=== PATIENT | male | born 1940 | race Hispanic/Latino ===

== ENCOUNTER → 2017-03-27 | Outpatient (CLI) | payer MEDICARE | END | disposition home or self-care (01) | LOC: RAH 12:09 | PROVIDERS: ATTEND Internal Medicine | DX: N28.1 Cyst of kidney, acquired (principal) | CPT/HCPCS: 76770 ==

== ENCOUNTER 2017-04-08 09:45 | Emergency (ER) | payer MEDICARE ==
[2017-04-08 10:38] LABS: BASOPHILS % (AUTO) 0.9 % (0.0-5.0); EOSINOPHILS % (AUTO) 2.4 % (0.0-8.0); HEMATOCRIT 38.5 % (42-54); LYMPHOCYTES % (AUTO) 10.6 % (21.0-51.0); MEAN CORPUSCULAR HEMOGLOBIN 29.8 pg (27.0-33.0); MEAN CORPUSCULAR HGB CONC 33.7 g/dL (32.0-36.0); MEAN CORPUSCULAR VOLUME 88.5 fL (79-99); MONOCYTES % (AUTO) 7.6 % (3.0-13.0); NEUTROPHILS % (AUTO) 78.5 % (40.0-77.0); PLATELET COUNT (AUTO) 295 K/uL (130-400); RED BLOOD CELL COUNT(AUTO) 4.35 MIL/uL (4.50-6.20); WHITE BLOOD COUNT (AUTO) 7.1 K/uL (4.8-10.8)
[2017-04-08 10:52] LABS: CREATININE 0.8 mg/dL (0.5-1.5); POTASSIUM 4.3 mmol/L (3.5-5.1)
[2017-04-08 11:06] LABS: ALBUMIN 3.6 g/dL (3.5-5.0); BILIRUBIN,TOTAL 0.5 mg/dL (0.2-1.0); CREATINE KINASE MB 5.4 ng/mL (0.5-3.6)
[2017-04-08] MEDS ORDERED: AZITHROMYCIN 250 MG TABLET PO ONE (13:28)
== END 2017-04-08 13:44 | disposition home or self-care (01) ==
LOC: EDH 09:45
DX: J06.9 Acute upper respiratory infection, unspecified (principal); I10 Essential (primary) hypertension; E78.5 Hyperlipidemia, unspecified; Z79.899 Other long term (current) drug therapy; Z98.890 Other specified postprocedural states; Z87.891 Personal history of nicotine dependence
CPT/HCPCS: 36415; 71045; 80053; 82550; 82553; 84484; 85025; 87804; 93005

== ENCOUNTER 2017-06-17 18:51 | Emergency (ER) | payer MEDICARE ==
[2017-06-17] MEDS ORDERED: OCTYL 2-CYANOACRYLATE 1 EACH TP ONE (19:10)
== END 2017-06-17 19:47 | disposition home or self-care (01) ==
LOC: EDH 18:51
DX: S61.412A Laceration without foreign body of left hand, initial encounter (principal); E78.5 Hyperlipidemia, unspecified; I10 Essential (primary) hypertension; W18.39XA Other fall on same level, initial encounter; Y93.89 Activity, other specified; Y92.098 Other place in other non-institutional residence as the place of occurrence of the external cause; Y99.8 Other external cause status

== ENCOUNTER 2018-07-30 14:12 | Emergency (ER) | payer MEDICARE ==
[2018-07-30 15:10] LABS: BASOPHILS % (AUTO) 0.7 % (0.0-5.0); EOSINOPHILS % (AUTO) 0.7 % (0.0-8.0); HEMATOCRIT 36.9 % (42-54); LYMPHOCYTES % (AUTO) 4.8 % (21.0-51.0); MEAN CORPUSCULAR HEMOGLOBIN 29.8 pg (27.0-33.0); MEAN CORPUSCULAR HGB CONC 33.5 g/dL (32.0-36.0); MEAN CORPUSCULAR VOLUME 89.1 fL (79-99); MONOCYTES % (AUTO) 16.3 % (3.0-13.0); NEUTROPHILS % (AUTO) 77.5 % (40.0-77.0); PLATELET COUNT (AUTO) 226 K/uL (130-400); RED BLOOD CELL COUNT(AUTO) 4.14 MIL/uL (4.50-6.20); RED CELL DISTRIBUTION WIDTH 13.8 % (11.0-15.5)
[2018-07-30 15:17] LABS: CREATININE 0.9 mg/dL (0.5-1.5)
[2018-07-30 15:22] LABS: ALBUMIN 3.8 g/dL (3.5-5.0); BILIRUBIN,DIRECT 0.1 mg/dL (0.0-0.3); BILIRUBIN,TOTAL 0.4 mg/dL (0.2-1.0); TOTAL PROTEIN, SERUM 6.7 g/dL (6.0-8.3)
[2018-07-30] MEDS ORDERED: ACETAMINOPHEN EXTRA STRENGTH 500 MG TABLET ONE (15:39)
[2018-07-30] MEDS ORDERED: OSELTAMIVIR PHOSPHATE 75 MG CAP ONE (16:00)
== END 2018-07-30 16:58 | disposition home or self-care (01) ==
LOC: EDH 14:12
DX: J09.X2 Influenza due to identified novel influenza A virus with other respiratory manifestations (principal); I10 Essential (primary) hypertension; E78.5 Hyperlipidemia, unspecified; Z87.891 Personal history of nicotine dependence
CPT/HCPCS: 36415; 71046; 80048; 80076; 82550; 83605; 84484; 85025; 87040; 87804; 93005

== ENCOUNTER 2018-09-12 20:40 | Observation (INO) | payer MEDICARE ==
[~2018-09-12] VITALS: Ht 165.1 cm; Wt 64.0 kg
[2018-09-12 21:20] LABS: APPEARANCE,URINE Clear (CLEAR); BILIRUBIN,URINE Small (NEGATIVE); COLOR,URINE Dark Yellow (YELLOW); GLUCOSE, URINE (UA) Negative (NEGATIVE); KETONES,URINE 15 mg/dL (NEGATIVE); LEUKOCYTE ESTERASE ,URINE Negative (NEGATIVE); NITRATE,URINE Negative (NEGATIVE); OCCULT BLOOD,URINE Negative (NEGATIVE); PROTEIN,URINE Trace mg/dL (NEGATIVE)
[2018-09-12] MEDS ORDERED: SODIUM CHLORIDE 0.9% 1000ML 1,000 ML IV ONE (21:29)
[2018-09-12 21:38] LABS: BACTERIA,URINE Few /HPF (None Seen); CALCIUM OXALATE CRYSTALS,UR Few /LPF (None Seen); MUCUS,URINE Few LPF (None Seen); RBC,URINE None Seen /HPF (0-1); SQUAMOUS EPITHELIAL CELL,UR None Seen /HPF (0-2); WBC,URINE 0-1 /HPF (0-1)
[2018-09-12 21:50] LABS: BASOPHILS % (AUTO) 0.6 % (0.0-5.0); EOSINOPHILS % (AUTO) 0.4 % (0.0-8.0); HEMATOCRIT 38.6 % (42-54); LYMPHOCYTES % (AUTO) 5.3 % (21.0-51.0); MEAN CORPUSCULAR HEMOGLOBIN 30.3 pg (27.0-33.0); MEAN CORPUSCULAR HGB CONC 33.7 g/dL (32.0-36.0); MEAN CORPUSCULAR VOLUME 89.8 fL (79-99); MONOCYTES % (AUTO) 15.2 % (3.0-13.0); NEUTROPHILS % (AUTO) 78.5 % (40.0-77.0); PLATELET COUNT (AUTO) 251 K/uL (130-400); RED CELL DISTRIBUTION WIDTH 13.9 % (11.0-15.5); WHITE BLOOD COUNT (AUTO) 4.1 K/uL (4.8-10.8)
[2018-09-12 22:01] LABS: CREATININE 0.9 mg/dL (0.5-1.5); POTASSIUM 3.6 mmol/L (3.5-5.1)
[2018-09-12 22:05] LABS: ALBUMIN 3.8 g/dL (3.5-5.0); BILIRUBIN,TOTAL 0.6 mg/dL (0.2-1.0); TOTAL PROTEIN, SERUM 6.9 g/dL (6.0-8.3)
[2018-09-12 22:16] LABS: BAND NEUTROPHILS % (MANUAL) 27 % (0-2); LYMPHOCYTES % (MANUAL) 9 % (22-44); METAMYELOCYTES % 1 % (0-0); MONOCYTES % (MANUAL) 11 % (2-9); SEGMENTED NEUTROPHILS % 52 % (40-70)
[2018-09-12 22:17] LABS: MAN.DIFF COMMENT-IMPRESSION MANUAL DIFFERENTIAL
[2018-09-12] MEDS ORDERED: LOPERAMIDE HCL 2 MG CAP PO PRN (23:45)
[2018-09-12] MEDS ORDERED: ACETAMINOPHEN 325 MG TAB PO PRN (23:45)
[2018-09-12] MEDS: 1/2 NORMAL SALINE 1,000 ML IV SCH (23:45)
[2018-09-12] MEDS ORDERED: ONDANSETRON HCL 4 MG/2 ML VIAL IVP PRN (23:45)
[2018-09-13] MEDS ORDERED: 1/2 NORMAL SALINE 1,000 ML IV ONE (01:20)
--- NOTE | 2018-09-13 01:30 | NUR ---
Received report from ER Nurse Callum helm,is admitted for dehydration due to diarrhea,stool specimen was collected in ER and was sent to lab and result is negative for Cdiff and negative for occult blood.
--- NOTE | 2018-09-13 01:50 | NUR ---
Received pt from ER via stretcher accompanied by ,alert and coherent.Pt. denies pain or any discomfort on 03/20 NS @125ml/hr infusing well to right AC.
[2018-09-13 01:55] VITALS: BP 133/68
[2018-09-13] MEDS ORDERED: PRAV10TA39 PO (02:07)
[2018-09-13] MEDS ORDERED: AMLO5TAB9 PO (02:07)
[2018-09-13 04:00] VITALS: BP 115/59
[2018-09-13 05:22] LABS: HEMATOCRIT 35.9 % (42-54); MEAN CORPUSCULAR HEMOGLOBIN 30.8 pg (27.0-33.0); MEAN CORPUSCULAR VOLUME 90.5 fL (79-99); PLATELET COUNT (AUTO) 213 K/uL (130-400); RED BLOOD CELL COUNT(AUTO) 3.97 MIL/uL (4.50-6.20); RED CELL DISTRIBUTION WIDTH 14.2 % (11.0-15.5); WHITE BLOOD COUNT (AUTO) 2.4 K/uL (4.8-10.8)
[2018-09-13 05:42] LABS: CREATININE 0.8 mg/dL (0.5-1.5); POTASSIUM 4.2 mmol/L (3.5-5.1)
--- NOTE | 2018-09-13 05:43 | NUR ---
Received call from lab staff Haritha, needs stool specimen to be collected because specimen sent from ER was not enough.
--- NOTE | 2018-09-13 06:55 | NUR ---
Dr. Blanton here and saw the pt. he ordered to advance diet as tolerated and if pt. tolerates cand discharge pt in the afternoon today.I also notified him that pt. fell at home last and sustained abrasion to right great toe ,dimesize.No new further order received.
[2018-09-13 08:21] VITALS: BP 107/59
[2018-09-13] MEDS ORDERED: PANTOPRAZOLE SODIUM 40 MG TABLET.DR PO SCH (09:00)
[2018-09-13] MEDS: 1/2 NORMAL SALINE 1,000 ML IV SCH (09:12)
[2018-09-13 12:10] VITALS: BP 110/56
--- NOTE | 2018-09-13 15:28 | NUR ---
DISCHARGE INSTRUCTIONS GIVEN. ALL QUESTIONS ANSWERED. IV DISCONTINUED WITH INNER CANNULA INTACT. INSTRUCTED TO FOLLOW UP WITH PRIMARY CARE PHYSCIAN .
== END 2018-09-13 15:16 | disposition home or self-care (01) ==
LOC: EDH 20:40 → EDHIP 23:15 → 3AH 09-13 00:50
PROVIDERS: ADMIT Internal Medicine; ATTEND Internal Medicine
DX: K52.9 Noninfective gastroenteritis and colitis, unspecified (principal); E86.0 Dehydration; I10 Essential (primary) hypertension; E78.5 Hyperlipidemia, unspecified; Z79.899 Other long term (current) drug therapy
CPT/HCPCS: 36415 ×2; 80048; 80053; 81001; 82270; 83605; 83690; 85025; 85027; 87040 ×2; 87324; 87804 ×2; 93005; 96360; 96361; 99284; G0378 ×16; J7030

== ENCOUNTER 2018-09-14 18:31 | Emergency (ER) | payer MEDICARE ==
[~2018-09-14 18:31] MED LIST: AMLO5TAB9 PO; PRAV10TA39 PO
[2018-09-14] MEDS ORDERED: SODIUM CHLORIDE 0.9% 500ML 500 ML IV ONE (18:51)
[2018-09-14 19:11] LABS: BASOPHILS % (AUTO) 0.7 % (0.0-5.0); EOSINOPHILS % (AUTO) 2.1 % (0.0-8.0); HEMATOCRIT 36.2 % (42-54); LYMPHOCYTES % (AUTO) 15.1 % (21.0-51.0); MEAN CORPUSCULAR HEMOGLOBIN 30.4 pg (27.0-33.0); MEAN CORPUSCULAR VOLUME 89.4 fL (79-99); NEUTROPHILS % (AUTO) 59.1 % (40.0-77.0); PLATELET COUNT (AUTO) 248 K/uL (130-400); RED BLOOD CELL COUNT(AUTO) 4.05 MIL/uL (4.50-6.20); RED CELL DISTRIBUTION WIDTH 14.5 % (11.0-15.5); WHITE BLOOD COUNT (AUTO) 4.2 K/uL (4.8-10.8)
[2018-09-14 19:42] LABS: CREATININE 0.9 mg/dL (0.5-1.5); POTASSIUM 3.5 mmol/L (3.5-5.1)
[2018-09-14 19:46] LABS: ALBUMIN 3.4 g/dL (3.5-5.0); BILIRUBIN,TOTAL 0.6 mg/dL (0.2-1.0); TOTAL PROTEIN, SERUM 6.7 g/dL (6.0-8.3)
[2018-09-14] MEDS ORDERED: HYOSCYAMINE SULFATE 0.125 MG TAB.SUBL SL ONE (19:59)
[2018-09-14] MEDS ORDERED: FAMOTIDINE/PF 20 MG/2 ML VIAL IV ONE (20:00)
== END 2018-09-14 23:08 | disposition home or self-care (01) ==
LOC: EDH 18:31
DX: A09 Infectious gastroenteritis and colitis, unspecified (principal); I10 Essential (primary) hypertension; E78.5 Hyperlipidemia, unspecified; Z98.890 Other specified postprocedural states
CPT/HCPCS: 36415; 74176; 80053; 83690; 85025; 96361; 96365; 99285; J3490; J7040

== ENCOUNTER 2022-03-21 12:53 | Emergency (ER) | payer OTHER, MEDICARE ==
[~2022-03-21] VITALS: Ht 172.7 cm; Wt 61.2 kg
[~2022-03-21 12:53] MED LIST changes: +AMLO-257 PO; -AMLO5TAB9 PO
[2022-03-21 14:22] LABS: BASOPHILS % (AUTO) 0.8 % (0.0-5.0); EOSINOPHILS % (AUTO) 1.8 % (0.0-8.0); HEMATOCRIT 37.4 % (42-54); MEAN CORPUSCULAR HEMOGLOBIN 29.5 pg (27.0-33.0); MEAN CORPUSCULAR HGB CONC 33.2 g/dL (32.0-36.0); MEAN CORPUSCULAR VOLUME 88.8 fL (79-99); MONOCYTES % (AUTO) 8.5 % (3.0-13.0); NEUTROPHILS % (AUTO) 78.6 % (40.0-77.0); PLATELET COUNT (AUTO) 238 K/uL (130-400); RED BLOOD CELL COUNT(AUTO) 4.21 MIL/uL (4.50-6.20); RED CELL DISTRIBUTION WIDTH 13.2 % (11.0-15.5); WHITE BLOOD COUNT (AUTO) 7.9 K/uL (4.8-10.8)
[2022-03-21 14:50] LABS: CREATININE 0.8 mg/dL (0.5-1.5); POTASSIUM 4.2 mmol/L (3.5-5.1)
[2022-03-21 14:54] LABS: ALBUMIN 3.7 g/dL (3.5-5.0); TOTAL PROTEIN, SERUM 6.8 g/dL (6.0-8.3)
[2022-03-21 16:05] VITALS: BP 116/67
== END 2022-03-21 16:00 | disposition left against medical advice (07) ==
LOC: EDH 12:53
DX: I95.2 Hypotension due to drugs (principal); F03.90 Unspecified dementia, unspecified severity, without behavioral disturbance, psychotic disturbance, mood disturbance, and anxiety; E11.9 Type 2 diabetes mellitus without complications; E78.00 Pure hypercholesterolemia, unspecified; I10 Essential (primary) hypertension; F20.9 Schizophrenia, unspecified; Z98.890 Other specified postprocedural states
CPT/HCPCS: 36415; 80053; 85025

== ENCOUNTER 2022-07-14 21:40 | Emergency (ER) | payer OTHER, MEDICARE ==
[~2022-07-14] VITALS: Ht 170.2 cm; Wt 63.5 kg
[2022-07-14] MEDS ORDERED: ACETAMINOPHEN 120 MG SUPPOSITORY RC ONE (22:22)
[2022-07-14] MEDS ORDERED: ACETAMINOPHEN 650 MG SUPPOSITORY RC ONE (22:24)
[2022-07-14] MEDS ORDERED: ACETAMINOPHEN 500 MG TABLET PO ONE (22:30)
[2022-07-14 22:40] LABS: BASOPHILS % (AUTO) 0.3 % (0.0-5.0); EOSINOPHILS % (AUTO) 0.4 % (0.0-8.0); LYMPHOCYTES % (AUTO) 5.2 % (21.0-51.0); MEAN CORPUSCULAR HEMOGLOBIN 29.9 pg (27.0-33.0); MEAN CORPUSCULAR HGB CONC 33.2 g/dL (32.0-36.0); MEAN CORPUSCULAR VOLUME 89.8 fL (79-99); MONOCYTES % (AUTO) 9.7 % (3.0-13.0); PLATELET COUNT (AUTO) 217 K/uL (130-400); RED BLOOD CELL COUNT(AUTO) 4.12 MIL/uL (4.50-6.20); RED CELL DISTRIBUTION WIDTH 13.5 % (11.0-15.5); WHITE BLOOD COUNT (AUTO) 6.9 K/uL (4.8-10.8)
[2022-07-14 22:54] LABS: APPEARANCE,URINE CLEAR (CLEAR); BILIRUBIN,URINE NEGATIVE (NEGATIVE); COLOR,URINE YELLOW (YELLOW); GLUCOSE, URINE (UA) NEGATIVE (NEGATIVE); KETONES,URINE NEGATIVE (NEGATIVE); LEUKOCYTE ESTERASE ,URINE NEGATIVE Leu/uL (NEGATIVE); NITRATE,URINE NEGATIVE (NEGATIVE); OCCULT BLOOD,URINE NEGATIVE (NEGATIVE); PH,URINE 6.5 (5.0-8.0); PROTEIN,URINE NEGATIVE (NEGATIVE); UROBILINOGEN,URINE 0.2 mg/dL (0.2-1.0)
[2022-07-14 23:00] LABS: CREATININE 0.9 mg/dL (0.5-1.5); POTASSIUM 3.8 mmol/L (3.5-5.1)
[2022-07-14 23:08] LABS: ALBUMIN 3.6 g/dL (3.5-5.0); TOTAL PROTEIN, SERUM 6.6 g/dL (6.0-8.3)
[2022-07-15 01:38] VITALS: BP 122/75
== END 2022-07-15 03:15 | disposition home or self-care (01) ==
LOC: EDH 21:40
DX: F03.90 Unspecified dementia, unspecified severity, without behavioral disturbance, psychotic disturbance, mood disturbance, and anxiety (principal); F20.9 Schizophrenia, unspecified; E11.9 Type 2 diabetes mellitus without complications; E78.00 Pure hypercholesterolemia, unspecified; I10 Essential (primary) hypertension; Z20.822 Contact with and (suspected) exposure to COVID-19
CPT/HCPCS: 99285; 70450; 71045; 87635; 84484; 80053; 85025; 87040 ×2; 87077 ×2; 87186 ×2; 87804 ×2; 83605; 81003; 36415; 93005; C9803

== ENCOUNTER 2023-01-16 15:29 | Emergency (ER) | payer OTHER, MEDICARE ==
[~2023-01-16] VITALS: Ht 175.3 cm; Wt 67.1 kg
[~2023-01-16 15:29] MED LIST changes: +OLAN2.5T29 PO
[2023-01-16 15:36] VITALS: BP 106/55; PULSE 62; RESP 16; O2SAT 100
[2023-01-16 16:37] LABS: BASOPHILS # (AUTO) 0.08 K/uL (0.00-0.20); BASOPHILS % (AUTO) 1.4 % (0.0-5.0); EOSINOPHILS # (AUTO) 0.31 K/uL (0.00-0.70); EOSINOPHILS % (AUTO) 5.5 % (0.0-8.0); HEMATOCRIT 34.8 % (42-54); IMMATURE GRANULOCYTE ABSOLUTE 0.01 K/uL (0-1); MEAN CORPUSCULAR HEMOGLOBIN 29.9 pg (27.0-33.0); MEAN CORPUSCULAR HGB CONC 32.8 g/dL (32.0-36.0); MEAN CORPUSCULAR VOLUME 91.3 fL (79-99); MONOCYTES # (AUTO) 0.5 K/uL (0.1-1.0); MONOCYTES % (AUTO) 8.1 % (3.0-13.0); NEUTROPHILS # (AUTO) 3.8 K/uL (1.8-7.7); NEUTROPHILS % (AUTO) 67.8 % (40.0-77.0); PLATELET COUNT (AUTO) 277 K/uL (130-400); RED BLOOD CELL COUNT(AUTO) 3.81 MIL/uL (4.50-6.20); RED CELL DISTRIBUTION WIDTH 14.6 % (11.0-15.5); WHITE BLOOD COUNT (AUTO) 5.7 K/uL (4.8-10.8)
[2023-01-16 16:46] LABS: CREATININE 0.7 mg/dL (0.5-1.5); POTASSIUM 3.9 mmol/L (3.5-5.1)
[2023-01-16 16:51] LABS: ALBUMIN 3.1 g/dL (3.5-5.0); BILIRUBIN,TOTAL 0.3 mg/dL (0.2-1.0); TOTAL PROTEIN, SERUM 6.2 g/dL (6.0-8.3)
[2023-01-16 17:41] LABS: ADD UA MICROSCOPIC YES; APPEARANCE,URINE CLOUDY (CLEAR); BILIRUBIN,URINE NEGATIVE (NEGATIVE); COLOR,URINE YELLOW (YELLOW); GLUCOSE, URINE (UA) NEGATIVE (NEGATIVE); KETONES,URINE NEGATIVE (NEGATIVE); LEUKOCYTE ESTERASE ,URINE 500 Leu/uL (NEGATIVE); NITRATE,URINE 2+ (NEGATIVE); OCCULT BLOOD,URINE NEGATIVE (NEGATIVE); PROTEIN,URINE 20 mg/dL (NEGATIVE); UROBILINOGEN,URINE 0.2 mg/dL (0.2-1.0)
[2023-01-16 17:44] LABS: BACTERIA,URINE FEW /HPF (None Seen); MUCUS,URINE FEW LPF (None Seen); OTHER CASTS, URINE 3 /LPF (None Seen); UNCLASSIFIED CRYSTAL 4 /HPF (None Seen); WBC CLUMP FEW /HPF (0-1); WBC,URINE >100 /HPF (0-1)
[2023-01-16] MEDS ORDERED: CEFTRIAXONE 1G VIAL ONE (17:51)
[2023-01-16] MEDS ORDERED: CEFTRIAXONE 1G VIAL IV ONE (18:00)
[2023-01-16] MEDS ORDERED: TETANUS/DIPHTHERIA TOXOID [ADULT] 0.5 ML VIAL IM ONE (18:30)
[2023-01-16] MEDS ORDERED: CEPH500B PO (18:32)
== END 2023-01-16 19:08 | disposition home or self-care (01) ==
LOC: EDH 15:29
DX: S00.83XA Contusion of other part of head, initial encounter (principal); E11.9 Type 2 diabetes mellitus without complications; E78.00 Pure hypercholesterolemia, unspecified; F03.90 Unspecified dementia, unspecified severity, without behavioral disturbance, psychotic disturbance, mood disturbance, and anxiety; F20.9 Schizophrenia, unspecified; I10 Essential (primary) hypertension; W18.39XA Other fall on same level, initial encounter; Y93.89 Activity, other specified; Y92.89 Other specified places as the place of occurrence of the external cause; Y99.8 Other external cause status
CPT/HCPCS: 99285; 70450; 96374; 80053; 85025; 87077; 87088; 87186; 81001; 36415; 90714; 72125; 90471; J0696

== ENCOUNTER 2023-02-24 14:59 | Emergency (ER) | payer OTHER, MEDICARE ==
[~2023-02-24] VITALS: Ht 175.3 cm; Wt 63.5 kg
[~2023-02-24 14:59] MED LIST changes: +CEPH500B PO
[2023-02-24] MEDS ORDERED: RIVA3CAP17 PO (15:23)
[2023-02-24] MEDS ORDERED: BACL10TA PO (15:25)
[2023-02-24] MEDS ORDERED: HALOPERIDOL INJ 5 MG/ML VIAL ONE (19:54)
[2023-02-24] MEDS ORDERED: HALOPERIDOL INJ 5 MG/ML VIAL IV STA (20:07)
[2023-02-24 20:08] LABS: HEMATOCRIT 38.5 % (42-54); MEAN CORPUSCULAR HEMOGLOBIN 30.3 pg (27.0-33.0); MEAN CORPUSCULAR VOLUME 91.9 fL (79-99); RED BLOOD CELL COUNT(AUTO) 4.19 MIL/uL (4.50-6.20); RED CELL DISTRIBUTION WIDTH 14.5 % (11.0-15.5); WHITE BLOOD COUNT (AUTO) 8.8 K/uL (4.8-10.8)
[2023-02-24 20:21] LABS: CREATININE 0.7 mg/dL (0.5-1.5); POTASSIUM 4.1 mmol/L (3.5-5.1)
[2023-02-24 20:30] LABS: APPEARANCE,URINE CLEAR (CLEAR); BILIRUBIN,URINE NEGATIVE (NEGATIVE); GLUCOSE, URINE (UA) NEGATIVE (NEGATIVE); KETONES,URINE NEGATIVE (NEGATIVE); LEUKOCYTE ESTERASE ,URINE MODERATE Leu/uL (NEGATIVE); NITRATE,URINE POSITIVE (NEGATIVE); OCCULT BLOOD,URINE SMALL (NEGATIVE); PROTEIN,URINE NEGATIVE (NEGATIVE); UROBILINOGEN,URINE 0.2 mg/dL (0.2-1.0)
[2023-02-24 20:32] LABS: ALBUMIN 3.7 g/dL (3.5-5.0); BILIRUBIN,TOTAL 0.3 mg/dL (0.2-1.0)
[2023-02-24 20:35] LABS: ADD UA MICROSCOPIC YES; COLOR,URINE COLORLESS (YELLOW)
[2023-02-24 20:37] LABS: BACTERIA,URINE MOD /HPF (None Seen); MUCUS,URINE RARE LPF (None Seen); WBC,URINE 51-100 /HPF (0-1)
[2023-02-24] MEDS ORDERED: OCTYL 2-CYANOACRYLATE 1 EACH TP SCH (21:00)
[2023-02-24] MEDS ORDERED: CEFTRIAXONE 1G VIAL IVPB ONE (21:00)
[2023-02-24] MEDS ORDERED: CEFD300C3 PO (21:59)
[2023-02-24 22:45] VITALS: BP 132/74; PULSE 88; RESP 18; O2SAT 99
== END 2023-02-24 23:06 | disposition home or self-care (01) ==
LOC: EDH 14:59
DX: S01.81XA Laceration without foreign body of other part of head, initial encounter (principal); N39.0 Urinary tract infection, site not specified; I10 Essential (primary) hypertension; E78.00 Pure hypercholesterolemia, unspecified; F03.90 Unspecified dementia, unspecified severity, without behavioral disturbance, psychotic disturbance, mood disturbance, and anxiety; W01.198A Fall on same level from slipping, tripping and stumbling with subsequent striking against other object, initial encounter; Y93.89 Activity, other specified; Y92.89 Other specified places as the place of occurrence of the external cause; Y99.8 Other external cause status
CPT/HCPCS: 99285; 96365; 70450; 96375; 82550; 83735; 84484; 80053; 85027; 87077; 87088; 87186; 81001; 36415; 12011; 93005; J1630; J0696

== ENCOUNTER 2023-08-11 19:56 | Emergency (ER) | payer OTHER, MEDICARE ==
[~2023-08-11] VITALS: Ht 167.6 cm; Wt 68.0 kg
[~2023-08-11 19:56] MED LIST changes: +BACL10TA PO; +CEFD300C3 PO; -CEPH500B PO; +RIVA3CAP17 PO
[2023-08-11 20:52] LABS: BASOPHILS # (AUTO) 0.02 K/uL (0.00-0.20); BASOPHILS % (AUTO) 0.2 % (0.0-5.0); EOSINOPHILS # (AUTO) 0.01 K/uL (0.00-0.70); EOSINOPHILS % (AUTO) 0.1 % (0.0-8.0); HEMATOCRIT 37.1 % (42-54); IMMATURE GRANULOCYTE ABSOLUTE 0.03 K/uL (0-1); LYMPHOCYTES # (AUTO) 0.4 K/uL (1.0-4.8); LYMPHOCYTES % (AUTO) 4.9 % (21.0-51.0); MEAN CORPUSCULAR HEMOGLOBIN 29.9 pg (27.0-33.0); MEAN CORPUSCULAR HGB CONC 33.2 g/dL (32.0-36.0); MONOCYTES # (AUTO) 0.6 K/uL (0.1-1.0); MONOCYTES % (AUTO) 6.9 % (3.0-13.0); NEUTROPHILS # (AUTO) 7.8 K/uL (1.8-7.7); NEUTROPHILS % (AUTO) 87.6 % (40.0-77.0); PLATELET COUNT (AUTO) 230 K/uL (130-400); RED BLOOD CELL COUNT(AUTO) 4.12 MIL/uL (4.50-6.20); RED CELL DISTRIBUTION WIDTH 14.2 % (11.0-15.5)
[2023-08-11 21:09] LABS: CREATININE 1.1 mg/dL (0.5-1.3)
[2023-08-11] MEDS ORDERED: IOHEXOL-350 75 ML VIAL IV ONE (21:11)
[2023-08-11] MEDS: ONDANSETRON 4MG INJ IVP STA (21:12)
[2023-08-11] MEDS: 0.9%NACL 1000ML 1,000 ML IV STA (21:12)
[2023-08-11 21:20] LABS: ALBUMIN 3.9 g/dL (3.5-5.0); BILIRUBIN,TOTAL 0.9 mg/dL (0.2-1.0); MAGNESIUM 2.1 mg/dL (1.80-2.40); TOTAL PROTEIN, SERUM 7.1 g/dL (6.0-8.3)
[2023-08-11 22:28] LABS: APPEARANCE,URINE CLEAR (CLEAR); BILIRUBIN,URINE NEGATIVE (NEGATIVE); COLOR,URINE YELLOW (YELLOW); GLUCOSE, URINE (UA) >=1000 mg/dL (NEGATIVE); KETONES,URINE NEGATIVE (NEGATIVE); LEUKOCYTE ESTERASE ,URINE NEGATIVE Leu/uL (NEGATIVE); NITRATE,URINE NEGATIVE (NEGATIVE); OCCULT BLOOD,URINE NEGATIVE (NEGATIVE); PH,URINE 7.5 (5.0-8.0); PROTEIN,URINE 10 mg/dL (NEGATIVE); UROBILINOGEN,URINE 0.2 mg/dL (0.2-1.0)
[2023-08-11 22:32] LABS: ADD UA MICROSCOPIC YES
[2023-08-11 22:33] LABS: BACTERIA,URINE FEW /HPF (None Seen); MUCUS,URINE RARE LPF (None Seen); SQUAMOUS EPITHELIAL CELL,UR RARE /HPF (0-2)
[2023-08-11 23:26] VITALS: BP 112/76; PULSE 57; RESP 16; O2SAT 96
== END 2023-08-11 23:27 | disposition home or self-care (01) ==
LOC: EDH 19:56
DX: R11.2 Nausea with vomiting, unspecified (principal); F03.90 Unspecified dementia, unspecified severity, without behavioral disturbance, psychotic disturbance, mood disturbance, and anxiety; I10 Essential (primary) hypertension; E78.00 Pure hypercholesterolemia, unspecified; F20.9 Schizophrenia, unspecified; Z79.899 Other long term (current) drug therapy
CPT/HCPCS: 99285; 74177; 96374; 96361; 71045; 83735; 84484; 80053; 83690; 85025; 81001; 36415; 93005; J7030; J2405; Q9967

== ENCOUNTER 2023-11-25 17:07 | Emergency (ER) | payer OTHER, MEDICARE ==
[~2023-11-25] VITALS: Ht 170.2 cm; Wt 74.8 kg
[2023-11-25 17:14] VITALS: BP 126/57; PULSE 76; RESP 16; TEMP 97.9; O2SAT 96
== END 2023-11-25 17:39 | disposition home or self-care (01) ==
LOC: EDH 17:07
DX: H11.31 Conjunctival hemorrhage, right eye (principal); F20.9 Schizophrenia, unspecified; F41.9 Anxiety disorder, unspecified; Z79.899 Other long term (current) drug therapy

== ENCOUNTER 2024-07-27 19:54 | Emergency (ER) | payer OTHER, MEDICAID ==
[~2024-07-27] VITALS: Ht 160 cm; Wt 70.3 kg
[~2024-07-27 19:54] MED LIST changes: -OLAN2.5T29 PO; +OLAN2.5T77 PO
[2024-07-27 21:29] LABS: BASOPHILS # (AUTO) 0.08 K/uL (0.00-0.20); BASOPHILS % (AUTO) 1.4 % (0.0-5.0); EOSINOPHILS # (AUTO) 0.14 K/uL (0.00-0.70); EOSINOPHILS % (AUTO) 2.4 % (0.0-8.0); HEMATOCRIT 39.2 % (42-54); IMMATURE GRANULOCYTE ABSOLUTE 0.02 K/uL (0-1); LYMPHOCYTES # (AUTO) 0.8 K/uL (1.0-4.8); LYMPHOCYTES % (AUTO) 14.6 % (21.0-51.0); MEAN CORPUSCULAR HEMOGLOBIN 29.8 pg (27.0-33.0); MEAN CORPUSCULAR HGB CONC 32.4 g/dL (32.0-36.0); MONOCYTES # (AUTO) 0.6 K/uL (0.1-1.0); MONOCYTES % (AUTO) 9.6 % (3.0-13.0); NEUTROPHILS # (AUTO) 4.1 K/uL (1.8-7.7); NEUTROPHILS % (AUTO) 71.7 % (40.0-77.0); PLATELET COUNT (AUTO) 380 K/uL (130-400); RED BLOOD CELL COUNT(AUTO) 4.26 MIL/uL (4.50-6.20); RED CELL DISTRIBUTION WIDTH 13.1 % (11.0-15.5); WHITE BLOOD COUNT (AUTO) 5.8 K/uL (4.8-10.8)
--- NOTE | 2024-07-27 21:29 | ERN ---
ED Note History of Present Illness Stated Complaint: LEG AND FOOT PAIN Chief Complaint: Wound Check Time Seen by MD: 20:01 Dictation: This is an 83-year-old male patient who has severe dementia brought by patient's for evaluation of right foot pain. Apparently patient was complaining of pain in his right foot and when she took off his shoes and socks which he normally wears all the time she thought there was some drainage and she wanted him checked out. No fevers chills or rigors. At baseline he is very limited in terms of communication as well as ambulation. He was basically mumbling and screaming in unintelligibly. Temperature 97.5� pulse 88 respirations 16 blood pressure 124/59 with a pulse oximetry of 95% on room air Allergies: Coded Allergies: No Known Allergies (Verified Allergy, Unknown, 07/17/15) Home Meds Active Scripts Clotrimazole (Clotrimazole) 1 % Cream..g., 1 APPL TP BID for 7 Days, #15 GM 0 Refills apply to affected area(s) Prov:YI COE MD 07/27/24 Cefdinir (Cefdinir) 300 Mg Capsule, 300 MG PO BID for 7 Days, #14 CAP Prov:DEONTE BOWLING PSYCHIATRIC AIDE INSTRUCTOR 02/24/23 Reported Medications Baclofen (Baclofen) 10 Mg Tablet, 10 MG PO HSPRN PRN for PAIN, TAB 02/24/23 Rivastigmine Tartrate (Rivastigmine) 3 Mg Capsule, 3 MG PO HS, CAP 02/24/23 Olanzapine (Olanzapine) 2.5 Mg Tablet, 2.5 MG PO BID, TAB 11/13/22 Pravastatin Sodium (Pravastatin Sodium) 10 Mg Tablet, 10 MG PO HS, TAB 09/13/18 Amlodipine Besylate (Amlodipine Besylate) 5 Mg Tablet, 5 MG PO DAILY, TAB 09/13/18 Past Medical History Past Medical History: Anxiety, Dementia, Diabetes-Type II, Hypertension, Schizophrenia Surgical History: Other Surgical History Other: HERNIA Family History: CAD, DM, HTN Social History: Negative, Lives with family RN Note Reviewed/Agreed w/PFSH: Yes Review of System Dictation Information obtained from the patient's spouse. Patient has a extreme dementia and is unable to communicate appropriately and furnish information Constitutional: Negative for fever,chills, and weight loss Eyes: Negative for injury, pain,redness, and discharge ENT: Negative for injury,pain or swelling Cardiovascular: Negative for chest pain, palpitations, and edema Respiratory: Negative for shortness of breath, cough, and wheezing, Abdomen/GI: Negative for abdominal pain, nausea, vomiting, diarrhea, and constipation Back: Negative for injury and pain : Negative for injury, bleeding and discharge MS/Extremity: Negative for injury and deformity Skin: Negative for rash, and discoloration Neuro: Negative for headache, weakness, numbness, tingling, and seizure Psych: Negative for suicide ideation, homicidal ideation, and hallucinations Initial Vital Sign VS Vital Signs Date Time Temp Pulse Resp B/P (MAP) Pulse Ox O2 Delivery O2 Flow Rate FiO2 07/27/24 19:55 97.5 88 16 124/59 95 Room Air 07/27/24 20:15 0 21 Physical Exam Dictation General: awake, alert, NAD very elderly male who is emaciated chronically ill-appearing Head/Face: Normocephalic, atraumatic Eyes: PERRL, EOMI, vision at baseline ENT: oral cavity clear, TMs clear, no signs of infection Neck: Trachea midline, supple, no nuchal rigidity Cardiovascular: RRR, normal S1/S2, No MRGs, no JVD Respiratory: CTAB, no respiratory distress, No rales or wheezes Abdomen: Soft, non-tender, non-distended, normal bowel sounds, no guarding or rebound. Skin: Warm, dry, normal turgor, no rash MS/Extremity: Pulses equal, no cyanosis, neurovascular intact, FROM right foot exam-excellent dorsalis pedis and posterior tibialis pulses. Some scaling and peeling of the sole of the feet. Intertriginous areas had some odor but I did not see any obvious ulceration or drainage. Mild redness/purple color of the great toe Neuro: COAx4, GCS 15, strength 5/5, CN 2-12 intact, normal cerebellar exam, normal gait, Psych: Normal behavior, mood, and affect normal Extremities-trace edema without any palpable cords, Homans sign is negative Results (Laboratory/Radiology) Laboratory/Radiology Laboratory Tests Test 07/27/24 21:22 White Blood Count 5.8 K/uL (4.8-10.8) Red Blood Count 4.26 MIL/uL (4.50-6.20) L Hemoglobin 12.7 g/dL (14.0-18.0) L Hematocrit 39.2 % (42-54) L Mean Corpuscular Volume 92.0 fL (79-99) Mean Corpuscular Hemoglobin 29.8 pg (27.0-33.0) Mean Corpuscular Hemoglobin Concent 32.4 g/dL (32.0-36.0) Red Cell Distribution Width 13.1 % (11.0-15.5) Platelet Count 380 K/uL (130-400) Mean Platelet Volume 9.1 fL (7.5-10.5) Immature Granulocyte % (Auto) 0.3 % (0-1) Neutrophils (%) (Auto) 71.7 % (40.0-77.0) Lymphocytes (%) (Auto) 14.6 % (21.0-51.0) L Monocytes (%) (Auto) 9.6 % (3.0-13.0) Eosinophils (%) (Auto) 2.4 % (0.0-8.0) Basophils (%) (Auto) 1.4 % (0.0-5.0) Neutrophils # (Auto) 4.1 K/uL (1.8-7.7) Lymphocytes # (Auto) 0.8 K/uL (1.0-4.8) L Monocytes # (Auto) 0.6 K/uL (0.1-1.0) Eosinophils # (Auto) 0.14 K/uL (0.00-0.70) Basophils # (Auto) 0.08 K/uL (0.00-0.20) Absolute Immature Granulocyte (auto 0.02 K/uL (0-1) Nucleated Red Blood Cells 0.0 % (0.0-0.19) Sodium Level 140 mmol/L (136-145) Potassium Level 4.6 mmol/L (3.5-5.1) Chloride Level 105 mmol/L (101-111) Carbon Dioxide Level 31 mmol/L (21-32) Blood Urea Nitrogen 16 mg/dL (7-18) Creatinine 0.9 mg/dL (0.5-1.3) Glomerular Filtration Rate Calc 84 mL/min (>90) Random Glucose 119 mg/dL (70-105) H Total Calcium 9.2 mg/dL (8.5-10.1) Labs Reviewed?: Yes X-RAY Comment: REASON: FOOT PAIN, ELDERLY MALE POOR HISTORIAN ORDERING PHYSICIAN: YI COE MD PROCEDURE: FT 3VW RT - FOOT COMP 3+VWS RT Exam Type: FOOT COMP 3+VWS RT Clinical Information: FOOT PAIN, ELDERLY MALE POOR HISTORIAN Comparison: None Findings: The examination is unremarkable except for calcaneal spurs. No fractures or dislocations are seen. No radiopaque foreign bodies are noted. Soft tissues are preserved. IMPRESSION: Calcaneal spurs. DICTATED BY: HUDSON HDEZ MD DATE: 07/28/241453 ELECTRONICALLY SIGNED BY: HUDSON HDEZ MD DATE: 07/28/241456 ED Course ED Course Orders Procedure Category Date Status Time Cbc With Differential LAB 07/27/24 Complete 21:14 Basic Metabolic Panel LAB 07/27/24 Complete 21:14 Foot Comp 3+Vws Rt RAD 07/27/24 Resulted 21:15 Vital Signs Date Time Temp Pulse Resp B/P (MAP) Pulse Ox O2 Delivery O2 Flow Rate FiO2 07/27/24 23:01 98.2 67 19 132/69 95 Room Air* 0 21 07/27/24 22:28 98.1 65 16 129/66 96 Room Air* 0 21 07/27/24 21:15 98.2 69 18 132/64 97 Room Air* 0 21 07/27/24 20:15 98.2 74 18 127/53 98 Room Air* 0 21 07/27/24 19:55 97.5 88 16 124/59 95 Room Air We will perform diagnostic labs, advanced imaging and administer medications according to the patient's complaint. Once the results are available, will review and personally interpreted the labs to rule out any acute life- threatening emergency the trach require immediate intervention and treatment. I will then re-evaluate the patient after treatment and diagnostic exams have return to determine whether the patient requires any further testing, can safely be discharged home or need further admission to hospital for additional treatment and evaluation. I discussed with the patient's spouse that all the labs reviewed including CBC BNP 7 are all with a normal limits. X-ray of the foot does not show any acute fracture or dislocation. I explained to her that I do not see any active ulceration or obvious pus or drainage but it appears more like athlete's feet or tinea pedis and I recommended antifungal cream to the foot. Patient was pleasantly cooperative by this time and the patient's spouse wanted to take him home to be in the familiar environment due to his dementia Medical Decision Making MDM MDM: Differential diagnosis: Foot infection, cellulitis, abscess, hairline fractures, fasciitis Rationale: Tests considered and ordered secondary to shared decision making include: labs, ECG and radiology Previous outside records reviewed: Old ER visits. Risk of complication and/or morbidity or mortality of patient management: None Medications-Per medication reconciliation Need for hospitalization: Patient does meet criteria for hospitalization. Need for emergency major/minor surgery: No There are no social concerns with this patient. Prescription drug management Prescriptions will include symptomatic care Patient's prior external medical records from other ER visits were reviewed by me as indicated. Prior testing and results from previous visits were reviewed. Prior tests were taken into account with medical decision making and resource utilization, independent historian/historians were used to obtain complete medical history. I independently interpreted the test that were performed, results were reviewed by me and considered findings on radiology if ordered. Medical management and examination interpretation discussions were had by me with other qualified healthcare professionals as indicated for the patient's care. Problem List Problem List: (1) Tinea pedis of right foot (2) Dementia DX & DISP Disposition: Discharge Departure Impression: Primary Impression: Tinea pedis of right foot Additional Impression: Dementia Condition: Stable Scripts Clotrimazole (Clotrimazole) 1 % Cream..g. 1 APPL TP BID for 7 Days, #15 GM 0 Refills apply to affected area(s) Prov: YI COE MD 07/27/24 Additional Instructions: Patient and the caregiver have been informed of all the diagnostic tests and the imaging conducted during the today's visit to the emergency room and has verbalized understanding of the results I have personally reviewed and interpreted all diagnostic exams performed here in the ER today as well as the vital signs documented by the nursing staff. The patient is now being discharged to home and should follow up with the primary care physician or the specialist as directed by the ER staff. Follow-up with primary care provider in 1 to 2 days. Take medications as directed here in the emergency room. Okay to continue home medications unless o therwise discussed during your visit in the emergency room today. Return to your nearest emergency room if symptoms worsen or if there is no improvement. Call 911 if you need immediate assistance. Take Tylenol or Motrin [id number] as needed and if no contraindications are present. Increase oral hydration. A wound culture or urine culture was ordered here in the emergency room department please follow-up with primary care provider and advise them to get repeat ports from our facility. If you had any Sanjeev wrap/splints that were applied here, please do not remove them until you see your primary care or specialty. Referrals: ERICKSON POE MD (PCP) YI COE MD July 27, 2024 21:29
[2024-07-27 21:40] LABS: CREATININE 0.9 mg/dL (0.5-1.3); POTASSIUM 4.6 mmol/L (3.5-5.1)
[2024-07-27] MEDS ORDERED: CLOT15CR23 TP (22:15)
[2024-07-27 23:01] VITALS: BP 132/69; PULSE 67; RESP 19; TEMP 98.2; O2SAT 95
--- NOTE | 2024-07-28 14:57 | HMCIMG ---
Exam Type: FOOT COMP 3+VWS RT Clinical Information: FOOT PAIN, ELDERLY MALE POOR HISTORIAN Comparison: None Findings: The examination is unremarkable except for calcaneal spurs. No fractures or dislocations are seen. No radiopaque foreign bodies are noted. Soft tissues are preserved. IMPRESSION: Calcaneal spurs.
== END 2024-07-27 23:03 | disposition home or self-care (01) ==
LOC: EDH 19:54
DX: B35.3 Tinea pedis (principal); F03.90 Unspecified dementia, unspecified severity, without behavioral disturbance, psychotic disturbance, mood disturbance, and anxiety; F41.9 Anxiety disorder, unspecified; E11.9 Type 2 diabetes mellitus without complications; I10 Essential (primary) hypertension; F20.9 Schizophrenia, unspecified; Z79.899 Other long term (current) drug therapy
CPT/HCPCS: 36415; 73630; 80048; 85025; 99284; 99285